=== PATIENT | female | born 1970 | race American Indian/Alaskan Native ===

== ENCOUNTER 2021-08-17 05:35 | Emergency (ER) | payer SELFPAY ==
[2021-08-17 05:42] VITALS: BP 169/94
--- NOTE | 2021-08-17 06:04 | XRay Report ---
CHEST 1 VIEW 08/17/2021 5:55 AM INDICATION / CLINICAL INFORMATION: cough. COMPARISON: None available. FINDINGS: SUPPORT DEVICES: None. HEART / MEDIASTINUM: No significant abnormality. LUNGS / PLEURA: No significant pulmonary abnormality. No significant pleural effusion. No pneumothora x. ADDITIONAL FINDINGS: No significant additional findings. IMPRESSION: 1. No acute abnormality of the chest. Signer Name: Ravinder Meneses MD Signed: 08/17/2021 6:00 AM Workstation Name: [id number]
== END 2021-08-17 10:37 | disposition left against medical advice (07) ==
LOC: ED 05:35
DX: R07.9 Chest pain, unspecified (principal); R05.9 Cough, unspecified; Z53.21 Procedure and treatment not carried out due to patient leaving prior to being seen by health care provider
CPT/HCPCS: 71045

== ENCOUNTER 2021-10-06 12:35 | Emergency (ER) | payer MEDICAID ==
[2021-10-06 13:33] VITALS: BP 160/90
== END 2021-10-06 23:28 | disposition left against medical advice (07) ==
LOC: ED 12:35
DX: R20.2 Paresthesia of skin (principal); Z53.21 Procedure and treatment not carried out due to patient leaving prior to being seen by health care provider

== ENCOUNTER 2021-11-30 12:14 | Emergency (ER) | payer MEDICAID ==
[2021-11-30 12:48] VITALS: BP 152/90
--- NOTE | 2021-11-30 12:51 | Emergency Department Report ---
Stated Complaint: WRIST PAIN - HPI History of Present Illness: bilateral hand pain with burning and tingling sine october 05 unable to prn occupational therapist and hand items in her hand, recent spinal surgery 11/05/21. Was sent to ER by neurosurgeon. 02/01. - ROS Review of Systems: No chest pain, no shortness of breath, no dizziness, Bilateral hand pain with numbness tingling and weakness. Patient reports radiation from her elbows down to her fingertips. - Exam Physical Exam: Patient in no acute distress. Patient ambulates with a walker. Patient has a neck brace on. Patient has nonlabored breathing. Patient alert and orient x4. MSE screening note: Focused history and physical exam performed. Due to findings the following was ordered: MSE complete. Orders to be placed. Patient to be seen by another provider in the back. Triage complete. ED Disposition for MSE Condition: Stable
== END 2021-12-01 11:22 | disposition left against medical advice (07) ==
LOC: ED 12:14
DX: M25.539 Pain in unspecified wrist (principal); Z53.21 Procedure and treatment not carried out due to patient leaving prior to being seen by health care provider